=== PATIENT | female | born 1970 | race Two or more races ===

== ENCOUNTER 2019-08-31 12:21 | Emergency (ER) | payer MEDICAID, OTHER ==
[~2019-08-31] VITALS: Ht 162.6 cm; Wt 133.8 kg
[2019-08-31] MEDS ORDERED: DexAMETHasone INJECTION 10 MG in D5W 5% 50 ML IV ONE (15:15)
[2019-08-31 15:42] LABS: Basophils # (auto) 0.1 uL; Basophils % (auto) 1.1 % (0.0-2.0); Eosinophils # (auto) 0.3 uL; Eosinophils % (auto) 3.9 % (0.0-7.0); Hematocrit 37.4 % (36.0-46.0); Hemoglobin 12.3 g/dL (12.2-16.2); Lymphocytes # (auto) 2.2 uL; Mean Corpuscular Hemoglobin 28.3 pg (28.0-32.0); Mean Corpuscular Hgb Conc. 32.9 g/dL (32.0-36.0); Mean Corpuscular Volume 85.9 fL (80.0-100.0); Monocytes # (auto) 0.5 uL; Monocytes % (auto) 6.4 % (0.0-12.0); Neutrophils # (auto) 5.3 uL; Neutrophils % (auto) 62.6 % (37.0-80.0); Nucleated Red Blood Cells % 0.1 %; Platelet Count (auto) 263 10^3/uL (140-450); Red Blood Cells 4.36 10^6/uL (4.0-5.20); Red Cell Distribution Width 15.1 % (11.8-14.3); White Blood Cell 8.5 10^3/uL (4.4-10.8)
[2019-08-31 15:51] LABS: Albumin 3.2 g/dL (3.4-5.0); BUN/Creatinine Ratio 17.3; Calcium 8.1 mg/dL (8.5-10.1); Potassium 3.8 mmol/L (3.5-5.1)
[2019-08-31 15:54] LABS: Bilirubin, Total 0.4 mg/dL (0.2-1.0); Total Protein 7.4 g/dL (6.4-8.2)
[2019-08-31] MEDS ORDERED: IOHEXOL 300 MG/ML 100ML BOTTLE IJ ONE (16:06)
[2019-08-31 19:35] VITALS: BP 138/76
[2019-09-01] MEDS ORDERED: DexAMETHasone INJECTION 10 MG in D5W 5% 50 ML IV SCH (10:00)
== END 2019-08-31 20:58 | disposition home or self-care (01) ==
LOC: ER 12:30
DX: J35.01 Chronic tonsillitis (principal); R22.1 Localized swelling, mass and lump, neck
CPT/HCPCS: 36415; 36600; 70491; 71046; 80053; 81025; 82805; 85025; 93005; 96365; 99284; J1100; J7060; Q9967